=== PATIENT | male | born 1970 | race Caucasian/White ===

== ENCOUNTER 2024-02-22 15:46 | Outpatient (CLI) | payer OTHER, SELFPAY ==
--- NOTE | 2024-02-22 16:02 | MR_ITS ---
WS: [id number] MRI HEAD WITH CONTRAST WITH ATTENTION TO THE INTERNAL AUDITORY CANALS TECHNIQUE: Sagittal T1, T2 axial, T2 axial flair, axial susceptibility weighted imaging, axial diffus ion weighted images, and coronal T2 images were obtained. Pre and post T1 axial and post T1 coronal i mages. ADC and FSPGR images. Post gadolinium images with attention to the internal auditory canals. A xial fiesta imaging. CLINICAL INFORMATION: IAC COMPARISON: None. FINDINGS: No evidence of restricted diffusion to suggest acute ischemia. Ventricular system and basal cisterns are patent. Normal posterior fossa. Normal vascular flow voids at the skull base. No extra-axial flui d collections. No evidence of mass or mass effect. Paranasal sinuses are well aerated. Mastoid air ce lls are well aerated. Temporal lobes and hippocampal formations are normal in appearance. No hemosiderin on the susceptibly weighted images. Minimal small vessel changes. No significant paren chymal volume loss. Proximal 7th and 8th cranial nerves are normal in appearance. Normal trigeminal n erve root entry zones. No evidence of enhancing IAC or CP angle mass. Normal dural venous sinuses. No abnormal intracranial enhancement. No other suspicious findings. MR/MR iac's wo/w con* [id number] IMPRESSION: 1. Proximal 7th and 8th cranial nerves are normal in appearance. No evidence o f enhancing IAC or CP angle mass. Normal trigeminal nerve root entry zones. 2. No hemosiderin on the susceptibly weighted images. 3. No other suspicious findings.
[2024-02-22] MEDS: gadobenate dimeglumine 20 mL vial IV (16:12)
== END 2024-02-22 15:47 | disposition home or self-care (01) ==
LOC: RAD 15:54
PROVIDERS: Visit Provider Specialist
DX: R42 Dizziness and giddiness (principal); H90.8 Mixed conductive and sensorineural hearing loss, unspecified; H93.13 Tinnitus, bilateral
CPT/HCPCS: 70553; A9577

== ENCOUNTER 2025-03-07 11:44 | Day surgery (SDC) | payer OTHER, SELFPAY ==
[2025-03-07 11:52] VITALS: BP 98/63; PULSE 70; RESP 18; TEMP 36.3; O2SAT 97; BMI 24.4
--- NOTE | 2025-03-07 12:15 | ANES.PREANE2 ---
Pre-Anesthetic Assessment Height/Weight: Height 1.8 m Weight 79.379 kg Temp Pulse Resp BP Pulse Ox O2 Del Method 97.3 F L 70 18 98/63 97 Room Air 03/07/25 11:52 03/07/25 11:52 03/07/25 11:52 03/07/25 11:52 03/07/25 11:52 03/07/25 11:52 Operation Date: 03/07/25 12:30 Proposed Procedures p Colonoscopy [id number] G0121 Z12.11(Not Applicable) - Slava Dewitt MD Was Beta Shreyas taken within 24 hours: N/A Was Clonidine taken within 24 hours: N/A Last intake: Intake Last Liquid Date 03/06/25 Last Liquid Time 19:00 Last Solid Date 03/05/25 Last Solid Time 20:00 Social Tobacco Exam alert, oriented x 3, clear to auscultation bilaterally and regular rate & rhythm Airway Submandibular: within normal limits Cervical ROM: within normal limits Mallampati: Class II Dentition: full History/ROS No significant history except as noted Pulmonary Sleep Apnea CV/HEM None reported None reported Hepatic None reported GI None reported Metabolic None reported Musc/skel None reported Neuropsych None reported Anesthetic Plan ASA status: 2 Anesthesia: Anesthesia Evaluation, General and MAC Risk of > 500 ml blood loss (7ml/kg in children): No Medications/Allergies Home Medications ?Medication ?Instructions ?Recorded ?Confirmed ?Last Taken ?Type cholecalciferol (vitamin D3) 1 tab PO DAILY 02/13/25 03/03/25 03/05/25 18:00 History melatonin 1 mg tablet 1 mg PO DAILY 02/13/25 03/03/25 03/05/25 18:00 History CoQ-10 1 tab PO DAILY 03/03/25 03/03/25 03/05/25 18:00 History Glucosamine Chondroitin 1 tab PO DAILY 03/03/25 03/03/25 03/05/25 18:00 History omega-3 fatty acids 1 cap PO DAILY 03/03/25 03/03/25 03/05/25 18:00 History Allergies Allergy/AdvReac Type Severity Reaction Status Date / Time No Known Allergies Allergy Verified 03/07/25 11:50 Current Medications Generic Name Dose Route Start Last Admin Trade Name Freq PRN Reason Stop Dose Admin Sodium Chloride 1,000 mls @ 15 mls/hr 03/07/25 11:40 03/07/25 12:08 Sodium Chloride 0.9% IV 03/08/25 11:39 15 mls/hr .Q24H PRN Administration COLONOSCOPY FLUIDS PFSH Anesthesia Social History Smoking and tobacco/nicotine status: never used tobacco/nicotine
--- NOTE | 2025-03-07 12:17 | W.PM.OPSUD ---
Surgery/Procedure H&P Update DATE OF PROCEDURE: March 07, 2025 DATE H&P PERFORMED: 02/13/25 H&P UPDATE INFORMATION: I have reviewed H&P completed within last 30 days, I have examined patient prior to procedure and No changes to prior documentation PLANNED PROCEDURE: Operation Date: 03/07/25 12:30 Proposed Procedures p Colonoscopy [id number] G0121 Z12.11(Not Applicable) - Slava Dewitt MD
[2025-03-07 12:37] VITALS: BP 91/58; PULSE 70; RESP 18; TEMP 36.1; O2SAT 99
[2025-03-07 12:50] VITALS: BP 106/60; PULSE 70; RESP 18; O2SAT 99
[2025-03-07 13:00] VITALS: BP 92/66; PULSE 63; RESP 18; O2SAT 99
--- NOTE | 2025-03-07 13:06 | ANE.PACU2 ---
Inpatient post-anesthesia follow up: Airway intact: Yes Vital signs: Temperature 97.0 F Pulse Rate 63 Respiratory Rate 18 Blood Pressure 92/66 Pulse Oximetry 99 Oxygen Delivery Me thod Room Air Oxygen Flow Rate 2 Fraction of Inspir ed Oxygen Hydration adequate: Yes Nausea and vomiting: No Pain level: 1 Mental status: Baseline
== END 2025-03-07 13:22 | disposition home or self-care (01) ==
PROVIDERS: Visit Provider Student in an Organized Health Care Education/Training Program
PROC: 0DJD8ZZ Inspection of Lower Intestinal Tract, Via Natural or Artificial Opening Endoscopic (ICD-10-PCS; CPT 45378; principal; 2025-03-07 12:30)
DX: Z12.11 Encounter for screening for malignant neoplasm of colon (principal); K64.2 Third degree hemorrhoids; G47.30 Sleep apnea, unspecified
CPT/HCPCS: 45378; J2704; J7030

== ENCOUNTER → 2025-08-10 10:23 | Outpatient (BNVA) | payer OTHER, SELFPAY | PROVIDERS: Referring Provider Nurse Practitioner Family; Visit Provider Internal Medicine Rheumatology | DX: M25.50 Pain in unspecified joint (principal); M47.816 Spondylosis without myelopathy or radiculopathy, lumbar region | CPT/HCPCS: 36415; 72072; 72100; 72202; 80076; 82306; 82565; 83520; 85025; 85651; 86140; 86160; 86162; 86200; 86235; 86255; 86376; 86431; 86480; 86704; 86803; 87340 ==